=== PATIENT | male | born 1995 | race African-American/Black ===

== ENCOUNTER 2019-01-22 20:07 | Emergency (ER) | payer SELFPAY ==
[2019-01-22 20:08] VITALS: BP 142/93; PULSE 147; RESP 24; TEMP 36.2; O2SAT 95; BMI 19.2
--- NOTE | 2019-01-22 20:13 | EKG12_ITS ---
Test Reason : Blood Pressure : / mmHG Vent. Rate : 143 BPM Atrial Rate : 143 BPM P-R Int : 198 ms QRS Dur : 084 ms QT Int : 292 ms P-R-T Axes : 000 088 055 degrees QTc Int : 450 ms Sinus tachycardia with Premature supraventricular complexes ST & T wave abnormality, consider anterior ischemia Abnormal ECG Confirmed by DEMARIO AU ([id number]), editorial clerk EDIN KRISHNA ([id number]) on 01/29/2019 1:19:57 PM Referred By: Confirmed By:DEMARIO AU
--- NOTE | 2019-01-22 20:14 | ED.VIS.GEN ---
History of Present Illness Chief Complaint: Overdose Detail of Chief Complaint: Patient denies use of opiates Informant: Patient, Trailer Technician Onset: Today Context: Sudden Onset Timing: Intermittent Quality: Unresponsive with decreased respiration Location: Found in a ditch Current Severity: Mild Maximum Severity: Severe Worsened by: Patient admits to methamphetamine use not opiate Relieved by: 4 mg of Narcan Associated Symptoms: Tremors, tachycardia and agitation Narrative: Patient is a 24-year-old male who admits to snorting methamphetamine. He states he does not use opiates. 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 He denies headache. He denies visual disturbance. He denies throat pain. He denies chest pain. He did denies nausea or vomiting. Does report shortness of breath. He states he does not inject. Prior similar symptoms: No Recent Illness/Hospitalization: No - Past Medical History (1) No significant past medical history Status: Acute Past Medical History - Allergies and Home Meds Allergies/Adverse Reactions: Allergies No Known Allergies Allergy (Verified 01/22/19 20:12) Primary Care Physician: Care Physician,No Primary [Primary Care Provider] - Prior records reviewed: No Past Medical History: None Surgical History: no surgical history Lives: Spouse/ Significant Other Smoking Status: Unknown if ever smoked Alcohol: Rare Drugs: - - Amphetamine Review of Systems General: Reports: Chills, Sweats. Denies: Fever, Malaise Eyes: Reports: Visual changes - bilaterally. Denies: Blurred Vision - bilaterally ENT: Denies: Bilateral ear pain, Rhinorrhea, Sore throat Cardiovascular: Reports: Heart racing. Denies: Chest pain Respiratory: Reports: Dyspnea. Denies: Cough, Sputum Gastrointestinal: Denies: Abdominal pain, Nausea, Vomiting, Diarrhea Musculoskeletal: Reports: Myalgias. Denies: Arthralgias, Swelling, Extremity Pain Skin: Denies: Rash, Wounds Neurological: Reports: Weakness Psych: Reports: Anxiety Hematologic: Denies: Easy bruising, Easy bleeding Allergy: Denies: Swelling of the mouth, Swelling of the tongue Physical Exam Vital Signs/Narrative: Vital Signs Temp Pulse Resp BP Pulse Ox 01/22/19 20:08 97.1 F L 147 H 24 H 142/93 H 95 Inital Vital Signs reviewed: Yes General: Well developed, Cachectic, Acute Distress Head: Normocephalic, Atraumatic Eyes: Perrl, EOMI. Negative for: Pale conjunctiva, Scleral icterus ENT: Moist mucous membranes, No rhinorrhea, TM's clear, - - Poor dentition Neck: Supple, Nontender, No lymphadenopathy, No JVD Cardiovascular: Regular rhythm, No murmurs, Normal S1, Tachycardia Respiratory: No distress, CTA bilaterally, Chest nontender Abdomen: Soft, Nontender, Nondistended, Normal bowel sounds Rectal: Deferred Back: Nontender, Normal Inspection Extremities: Nontender, No edema Skin: Normal color, No rash, No Trauma. Negative for: Cyanosis, Diaphoresis, Jaundice Neurological: Alert, Oriented x3, Cranial nerves II-XII grossly intact, Normal Strength, Normal Sensation Psychological: Agitated Diagnostic/Tx/Re-eval - EKG Follow-up EKG Interpretation: Sinus Tachycardia - Sinus tachycardia with a ventricular rate of 143 and artifact. MO interval 298 ms. QS duration 84 ms. QT duration 292 ms. [place] is normal. There is no ischemia. This represents artifact because of his tremors from withdrawal. - Medical Decision Making Patient may be tachycardic because of using methamphetamine and suspect opiate withdrawal because he received 2 doses of Narcan. Does have symptoms consistent with opiate withdrawal even though he denies using opiates. He was placed on a monitor. He will be observed for 1 to 2 hours since he required multiple doses of Narcan to awaken him. He was reassessed at 2135. He is alert oriented. His vital signs have improved markedly. Plan is to discharge home with referral to [facility] ED Disposition - Plan for ED Patient: Disposition: Home or Assisted Living Diagnosis: Opiate overdose, Acute respiratory failure with hypoxia Instructions: Opiate Abuse Referrals: Care Physician,No Primary [Primary Care Provider] - [facility] [STAFF PHYSICIAN] - As soon as possible
[2019-01-22 20:50] VITALS: BP 128/86; PULSE 103; RESP 22; O2SAT 95
--- NOTE | 2019-01-22 20:52 | ED.RN ---
PER PT REQUEST, SISTER EJ CALLED
[2019-01-22 22:14] VITALS: BP 116/85; PULSE 94; RESP 17; O2SAT 99
== END 2019-01-22 22:26 | disposition home or self-care (01) ==
PROVIDERS: Emergency Provider Emergency Medicine
DX: T40.601A Poisoning by unspecified narcotics, accidental (unintentional), initial encounter (principal); J96.01 Acute respiratory failure with hypoxia; F15.90 Other stimulant use, unspecified, uncomplicated
CPT/HCPCS: 93005; 99251; 99285; J7030; A4216; G0463

== ENCOUNTER → 2019-07-17 13:19 | Outpatient (CLI) | payer MEDICAID, SELFPAY ==
--- NOTE | 2019-07-17 13:00 | RAD_ITS ---
STUDY: X-RAY CHEST REASON FOR EXAM: Male, 24 years old. COUGH X1 WEEK TECHNIQUE: PA and lateral views of the chest. COMPARISON: None. FINDINGS: Hyperinflation. Scattered calcified granulomas. There is no demonstrated pleural abnormality. Normal size heart. Normal mediastinum and sanchez. Normal visualized pulmonary arteries. Normal visualized aortic arch and descending thoracic aorta. Normal visualized thoracic spine. Normal visualized ribs, clavicles, and shoulders. There is no demonstrated abnormality of the visualized soft tissue structures of the upper abdomen. RAD/Chest PA and Lateral IMPRESSION: Hyperinflation. Scattered calcified granulomas. Electronically Signed: Kameron Bowen, at 13:31 EDT , Service support ,
== END ==
DX: R05 Cough (principal)
CPT/HCPCS: 71046